=== PATIENT | female | born 1965 | race Caucasian/White ===

== ENCOUNTER 2022-05-06 13:47 | Outpatient (CLI) | payer BC, SELFPAY ==
[2022-05-06 19:54] LABS: Rheumatoid Factor < 8.6 IU/ML (<12)
[2022-05-06 20:01] LABS: Erythrocyte Sedimentation Rate 3 mm/hr (0-20)
== END 2022-05-06 13:48 | disposition home or self-care (01) ==
LOC: ANHGOSHLAB 13:49
PROVIDERS: PCP Family Medicine; Visit Provider Nurse Practitioner Family
DX: M25.50 Pain in unspecified joint (principal); Z82.61 Family history of arthritis
CPT/HCPCS: 36415; 85652; 86038; 86430

== ENCOUNTER → 2023-01-07 09:04 | Outpatient (CLI) | payer OTHER, SELFPAY ==
--- NOTE | ~2023-01-07 | XR_ITS ---
Lumbosacral Spine: AP and lateral views Clinical History: Pain Findings: The normal lordotic curve is maintained. The vertebral bodies and posterior elements are i ntact. The intervertebral disc spaces are preserved. There is mild facet arthropathy at L4-L5 and L5 -S1. The sacroiliac joints are normally outlined. Impression: Mild facet arthropathy at the lower lumbar spine, as detailed above. Reviewed, dictated and finalized at location . Impression: Mild facet arthropathy at the lower lumbar spine, as detailed above.
== END ==
PROVIDERS: PCP Nurse Practitioner Family; Visit Provider Nurse Practitioner Family
DX: M54.50 Low back pain, unspecified (principal)
CPT/HCPCS: 72100

== ENCOUNTER 2023-02-25 04:13 | Day surgery (SDC) | payer OTHER, SELFPAY ==
[2023-02-10 10:42] VITALS: BMI 26.1
--- NOTE | 2023-02-24 14:46 | PM.HPGS ---
History of Present Illness History of Present Illness Consent: Risks, benefits, and alternatives have been discussed and questions answered. Patient agrees to proceed with procedure. Chief complaint: neoplasm screening Narrative: Tanesha Hutton is a 57 year old female Referred for colon cancer screening. she has a history of a polyp. She also has had breast cancer putting her at higher risk. Review of Systems Review of Systems: All systems reviewed & are unremarkable except as noted in HPI and below PMFSH Past Medical History Medical History Abnormal colonoscopy (~2018) Polyp x 1 Adult hypothyroidism Allergic contact dermatitis Benign essential hypertension Graves disease 1994 History of breast cancer 2008 Mixed hyperlipidemia Surgical History Surgical History H/O section 1982, 1983, 1987 H/O lumpectomy 2008 Family History Family History Sibling Family history of rheumatoid arthritis Father Family history of cardiovascular disease Family history of heart disease in male family member before age 55 Grandparent Family history of cardiovascular disease Cerebrovascular accident Family history of type 2 diabetes mellitus Family history of heart disease in male family member before age 55 Mother Family history of chronic obstructive pulmonary disease Family history of dementia Social History Social History Smoking status: Never smoker Alcohol intake: current Drinks per week: 1 Alcohol use details: socially Substance use: never Substance use type: does not use Lack of Transportation: No Lack of Food: Never True Current Housing: I Have Housing Concerned About Future Housing: No Difficulty Paying Gas/Electric Bills: No Difficulty Paying for Meds: No Currently Unemployed: No Education: Associate Degree Difficulty w/ Childcare or Family Care: No Living arrangements: with family Additional living arrangements comments: Occupation/Education: occupation Gender identity (if verbalized by the patient): Female 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 Sexual Orientation (if Verbalized by the Patient): Straight or Heterosexual Spiritual care concerns: No Agree to blood products: Yes Meds Home Medications and Allergies Home Medications Medication Instructions Recorded Confirmed Type triamcinolone acetonide 0.1 % 1 applic topical BID PRN Itching 07/21/20 02/25/23 History topical cream levothyroxine 100 mcg tablet 100 mcg PO DAILY #90 tabs 05/07/22 02/25/23 Rx lisinopril 10 mg tablet 10 mg PO DAILY #90 tabs 09/02/22 02/25/23 Rx lovastatin 10 mg tablet 10 mg PO DAILY #90 tabs 01/04/23 02/25/23 Rx Allergies Allergy/AdvReac Type Severity Reaction Status Date / Time No Known Drug Allergies Allergy unkown Verified 02/25/23 07:40 Exam Const: General: alert Orientation/consciousness: patient oriented x3 Resp: Auscultation: clear to auscultation bilaterally Cardio: Rate: regular rate Rhythm: regular rhythm GI: GI Palp: Yes Soft to palpation and No Tenderness to palpation present (GI) Neuro: General: patient oriented x3 Assessment and Plan Assessment and plan (1) Colon cancer screening: Code(s): Z12.11 - Encounter for screening for malignant neoplasm of colon Status: Acute Assessment and Plan: Colonoscopy with possible biopsy or polypectomy or cautery or injection of substances.
[2023-02-25 07:42] VITALS: BP 138/92; PULSE 77; RESP 18; TEMP 36.5; O2SAT 96; BMI 25.8
[2023-02-25] MEDS: LACTATED RINGERS 1,000 ML 150 ML IV CONT (07:44)
--- NOTE | 2023-02-25 08:27 | WPDANESEPPF ---
Anes - Initial Pre Proc Eval Procedure: Operation Date: 02/25/23 08:45 Proposed Procedures p Screening Colonoscopy - Lobito Pierce MD Date/Time: 02/25/23 08:27 Surgeon: Lobito Pierce MD Pre Op Diagnosis: neoplasm screening Patient Data Age: 57 Gender: F Height: 1.68 m Weight: 72.7 kg Last Vital Signs Temp 97.7 F 02/25/23 07:42 Pulse 77 02/25/23 07:42 Resp 18 02/25/23 07:42 BP 138/92 H 02/25/23 07:42 Pulse Ox 96 02/25/23 07:42 O2 Del Method Room Air 02/25/23 07:42 Allergies Allergy/AdvReac Type Severity Reaction Status Date / Time No Known Drug Allergies Allergy unkown Verified 02/25/23 07:40 Home Medications Medication Instructions Recorded Confirmed Type triamcinolone acetonide 0.1 % 1 applic topical BID PRN Itching 07/21/20 02/25/23 History topical cream levothyroxine 100 mcg tablet 100 mcg PO DAILY #90 tabs 05/07/22 02/25/23 Rx lisinopril 10 mg tablet 10 mg PO DAILY #90 tabs 09/02/22 02/25/23 Rx lovastatin 10 mg tablet 10 mg PO DAILY #90 tabs 01/04/23 02/25/23 Rx Patient hx anesthesia problems: none Family hx anesthesia problems: none Results Review: All pre-operative results and documents have been reviewed as part of the pre-operative evaluation. [facility] Past Medical History Medical History Abnormal colonoscopy (~2018) Polyp x 1 Adult hypothyroidism Allergic contact dermatitis Benign essential hypertension Graves disease 1994 History of breast cancer 2008 Mixed hyperlipidemia Surgical History Surgical History H/O section 1982, 1983, 1987 H/O lumpectomy 2008 Family History Family History Sibling Family history of rheumatoid arthritis Father Family history of cardiovascular disease Family history of heart disease in male family member before age 55 Grandparent Family history of cardiovascular disease Cerebrovascular accident Family history of type 2 diabetes mellitus Family history of heart disease in male family member before age 55 Mother Family history of chronic obstructive pulmonary disease Family history of dementia Social History Social History Smoking status: Never smoker Alcohol intake: current Drinks per week: 1 Alcohol use details: socially Substance use: never Substance use type: does not use Lack of Transportation: No Lack of Food: Never True Current Housing: I Have Housing Concerned About Future Housing: No Difficulty Paying Gas/Electric Bills: No Difficulty Paying for Meds: No Currently Unemployed: No Education: Associate Degree Difficulty w/ Childcare or Family Care: No Living arrangements: with family Additional living arrangements comments: Occupation/Education: occupation Gender identity (if verbalized by the patient): Female 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 Sexual Orientation (if Verbalized by the Patient): Straight or Heterosexual Spiritual care concerns: No Agree to blood products: Yes Anes - Eval Final PreProcedure Day of Procedure 02/25/23 08:27 Patient weight: normal Heart: regular rate and rhythm Lungs: clear to auscultation Airway: Mallampati scale class II Neurological: alert and oriented Last oral intake: >/= 8 hours ASA classification: III Emergent: no Anesthetic plan: proceed Anesthesia type and monitoring: general GIVS and standard monitoring Results Review: All pre-operative results and documents have been reviewed as part of the pre-operative evaluation. Informed Consent: The patient's anesthetic plan and its attendant risks and benefits were discussed with the patient/family/POA. Questions were solicited and answers provided to the satisfaction of the patient/family/POA.
[2023-02-25 08:58] VITALS: BP 113/55; PULSE 77; RESP 15; O2SAT 97
[2023-02-25 09:08] VITALS: BP 118/72; PULSE 80; RESP 18; O2SAT 99
[2023-02-25 09:18] VITALS: BP 121/68; PULSE 63; RESP 16; O2SAT 100
== END 2023-02-25 09:20 | disposition home or self-care (01) ==
PROVIDERS: PCP Nurse Practitioner Family; Visit Provider Internal Medicine Gastroenterology
PROC: 0DJD8ZZ Inspection of Lower Intestinal Tract, Via Natural or Artificial Opening Endoscopic (ICD-10-PCS; CPT 45378; principal; 2023-02-25 08:45)
DX: Z12.11 Encounter for screening for malignant neoplasm of colon (principal); I10 Essential (primary) hypertension; E78.2 Mixed hyperlipidemia; E05.00 Thyrotoxicosis with diffuse goiter without thyrotoxic crisis or storm; Z85.3 Personal history of malignant neoplasm of breast
CPT/HCPCS: 45378; J2704; J7120

== ENCOUNTER → 2023-08-08 09:02 | Outpatient (CLI) | payer OTHER, SELFPAY ==
--- NOTE | ~2023-08-08 | XR_ITS ---
AP view of the pelvis and AP and lateral views of the bilateral hips Clinical history: Pain Findings: No acute fracture or dislocation is seen. Osseous alignment is anatomic. Bilateral hip and SI joint spaces are preserved. Soft tissues are unremarkable. Impression: No significant abnormality is seen. Reviewed, dictated and finalized at [facility]. [employer] Impression: No significant abnormality is seen.
== END ==
PROVIDERS: PCP Nurse Practitioner Family; Visit Provider Nurse Practitioner Family
DX: M25.551 Pain in right hip (principal); M25.552 Pain in left hip
CPT/HCPCS: 73521

== ENCOUNTER 2023-10-24 09:45 | Outpatient (CLI) | payer OTHER, SELFPAY ==
--- NOTE | ~2023-10-24 | DEXA_ITS ---
Bone Density Report Name: MARC GLOVER Age: 57 Sex: Female Ethnicity: White Date of : 1965 Indication: postmenopausal; screening for osteoporosis; parental hip fracture; inflammatory bowel disease; cancer; Referring Provider: PERFECTO MYERS Study: Bone densitometry was performed. Exam Date: October 24, 2023 Accession number: [id number] Bone Density: Region BMD T-score Z-score Classification AP Spine(L1-L4) 0.855 -1.7 -0.3 Osteopenia Femoral Neck (Left) 0.667 -1.6 -0.4 Osteopenia Total Hip (Left) 0.846 -0.8 0.2 Normal Femoral Neck (Right) 0.681 -1.5 -0.2 Osteopenia Total Hip (Right) 0.815 -1.0 -0.1 Normal Total Hip Mean 0.830 -0.9 0.1 Normal World Health Organization criteria for BMD impression classify patients as: Normal (T-score at or above -1.0), Osteopenia (T-score between -1.0 and -2.5), or Osteoporosis (T-score at or below -2.5). 10-year Fracture Risk(1): Major Osteoporotic Fracture 16% Hip Fracture 0.8% Reported Risk Factors: [place] (), Neck BMD=0.667, BMI=28.3, parental fracture (1) FRAX(R) Version 3.08. Fracture probability calculated for an untreated patient. Fracture probability may be lower if the patient has received treatment. Clinical Information Provided by Patient: Parent has had a hip fracture Has used the following medications: Vitamin D Has the following medical conditions: Cancer, Inflammatory bowel diseases, grave's disease, right breast cancer (chemo, lumpectomy, radiation) Patient maximum height was 66 Drinks caffeinated beverages Onset of menses at age 13 Number of children 3 Impression: The patient has low bone mass, based on the Total Spine T-score. The patient has an estimated ten-year risk of hip fracture of 0.8% and an estimated ten-year risk of major fracture of 16%, based on the WHO FRAX algorithm. The patient has risk factors, including: parental hip fracture. Discussion: BONE DENSITY IS LOW AT ONE OR MORE SKELETAL SITES. This patient's lowest T-score is low at one or more skeletal sites. It meets the World Health Organization's (WHO) criteria for ?low bone mass? (T-score between -1.0 and -2.5). The patient's 10-year risk of fracture as calculated by FRAX is less than the threshold where pharmacological therapy is recommended by the National Osteoporosis Foundation (NOF). However, all treatment decisions require clinical judgment and consideration of individual patient factors, including patient preferences, comorbidities, previous drug use, risk factors not captured in the FRAX model (e.g., frailty, falls, vitamin D deficiency, increased bone turnover, interval significant decline in bone density) and possible under or overestimation of fracture risk by FRAX. The patient should follow a healthful lifestyle (good nutrition with sheryl
== END 2023-10-24 09:46 | disposition home or self-care (01) ==
LOC: ANHIMG 09:53
PROVIDERS: PCP Nurse Practitioner Family; Visit Provider Nurse Practitioner Family
DX: Z78.0 Asymptomatic menopausal state (principal); M85.88 Other specified disorders of bone density and structure, other site; M85.852 Other specified disorders of bone density and structure, left thigh; M85.851 Other specified disorders of bone density and structure, right thigh
CPT/HCPCS: 77080

== ENCOUNTER 2025-07-26 15:11 | Emergency (ER) | payer OTHER, SELFPAY ==
--- NOTE | ~2025-07-26 | CT_ITS ---
Tanesha Hutton EXAMINATION: CT abdomen pelvis w con COMPARISON: None HISTORY: LLQ pain, rectal bleeding TECHNIQUE: Axial images were obtained through the abdomen, pelvis post administration of IV contrast. Oral contrast was also administered. Coronal reconstruction images were obtained from the axial views. CT scan performed using dose optimization techniques including the following automated exposure control; adjustment of mA and/or kV; use of iterative reconstruction technique. Automatic exposure control was used to reduce radiation dose. Permanent radiation dose record is archived to PACS. FINDINGS: CT abdomen: LUNG BASES: The lung bases are clear. The visualized portions of the heart and pericardium are unremarkable. LIVER: Subcentimeter probable liver cysts. Minimal hepatic steatosis. Portal vein is patent. There is no intrahepatic biliary duct dilatation. SPLEEN: Unremarkable. KIDNEYS: Right Kidney: Unremarkable. No calculi. No hydronephrosis. Left Kidney: Unremarkable. No calculi. No hydronephrosis ADRENAL GLANDS: Unremarkable. PANCREAS: Unremarkable. GALLBLADDER/BILIARY: Unremarkable. No biliary dilatation. STOMACH AND ESOPHAGUS: Small hiatal hernia. The stomach appears decompressed. BOWEL/MESENTERY: Moderate fecal content. No colitis or diverticulitis. The appendix is normal. Mesentery normal. No thickened or dilated loops of small bowel. ADENOPATHY/RETROPERITONEUM: No lymphadenopathy. AORTA/VASCULATURE: Normal caliber aorta. FREE FLUID OR FREE AIR: There is no free fluid.. CT pelvis: SOLID ORGANS/REPRODUCTIVE: The uterine cavity is abnormally prominent in this postmenopausal patient. BLADDER: Within normal limits. OSSEOUS STRUCTURES: No acute osseous abnormality.No suspicious lesions. OVERLYING SOFT TISSUES: Unremarkable. IMPRESSION: 1. No etiology to explain the patient's left lower quadrant pain. 2. Distended uterine cavity in this postmenopausal patient and endometrial neoplasm is not excluded. Pelvic ultrasound is recommended Reviewed, dictated and finalized at location P. ING MACHINE TENDER IMPRESSION: 1. No etiology to explain the patient's left lower quadrant pain. 2. Distended uterine cavity in this postmenopausal patient and endometrial neop lasm is not excluded. Pelvic ultrasound is recommended
--- OUTSIDE RECORDS SUMMARY | 2025-07-26 15:13 | XMS_ITS | Encounter Summary ---
Author Organization [facility] Address [address] [place] [address] Care Team Providers Care Electric Motor Winders Assembler Name Role Phone Nabil Lund MD Primary Care Provider [phone] Encounter Details Date Type Department Care Team (Late st Contact Info) Description 03/13/2009 Outpatient Historical [facility] Stephanie Johnson MD NO ADDRESS ON FILE Social History Tobacco Use Types Packs/Day Years Used Date Smoking Tobacco: Never Assessed Comments Unknown Sex and Gender Information Value Date Recorded Sex Assigned at Female 07/23/2024 9:12 AM LEAF SIZE PICKER Legal Sex Female 5:41 AM LEAF SIZE PICKER Gender Identity Female 07/23/2024 9:12 AM LEAF SIZE PICKER Sexual Orientation Straight 07/23/2024 9: 12 AM LEAF SIZE PICKER documented as of this encounter Plan of Treatment Not on file documented as of this encounter Procedures Procedure Name Priority Date/Time Associated Diagnosis Comments NM BONE SCAN WHOLE BODY Timed Study 03/13/2009 7:59 AM CDT documented in this encounter Results * NM BONE SCAN WHOLE BODY (03/13/2009 7:59 AM CDT) Anatomical Region Laterality Modality Other 03/13/2009 7:59 AM CDT Narrative 03/13/2009 1:17 PM CDT [address] [address] Admit Date: 03/13/2009 TANESHA DOHERTY Sex: F Admit Prov: STEPHANIE JOHNSON Date: 1965 Primary Care Prov: FAROOQ CAZARES CMRN: [id number] [phone] [facility] Ordering Prov: N/A Accession Number: [id number] Interpretation WHOLE BODY BONE SCAN HISTORY: 43 year old female with recently diagnosed right-sided breast carcinoma. PROCEDURE: Approximately three hours after injection with 23.7 mCi of Tc 99m MDP, the patient was imaged in whole body anterior and posterior planar views. FINDINGS: Correlation is made with CT imaging dated 10/02/2008. Soft tissue uptake is normal, and the kidneys are visualized bilaterally. There is mild degenerative activity along the left cervical spine and at the T4 vertebral body. However, tracer activity throughout the remainder of the axilla and appendicular skeleton is unremarkable. There are no findings on this study to suggest osseous metastatic disease. IMPRESSION: 1. No evidence for osseous metastatic disease. 2. Mild degenerative uptake as above. . Dictated by: GONZÁLEZ EDWARD 03/13/2009 11:59 Electronically signed by: GONZÁLEZ EDWARD 03/13/2009 12:00 Procedure Note González Edward, DO - 03/13/2009 [id number] [place], [place] [address] Admit Date: 03/13/2009 TANESHA DOHERTY Sex: F Admit Prov: STEPHANIE JOHNSON Date: 1965 Primary Care Prov: FAROOQ CAZARES CMRN: [id number] [facility] [phone] [facility] Ordering Prov: N/A Interpretation WHOLE BODY BONE SCAN HISTORY: 43 year old female with recently diagnosed right-sided breastcarcinoma. PROCEDURE: Approximately three hours after injection with 23.7 mCi of Tc 99mMDP, the patient was imaged in whole body anterior and posterior planarviews. FINDINGS: Correlation is made with CT imaging dated 10/02/2008. Soft tissueuptake is normal, and the kidneys are visualized bilaterally. There is mild degenerative activity along the left cervical spine and at the [id number] body. However, tracer activity throughout the remainder of the axillaand appendicular skeleton is unremarkable. There are no findings on thisstudy to suggest osseous metastatic disease. IMPRESSION: 1. No evidence for osseous metastatic disease. 2. Mild degenerative uptake as above. . Dictated by: GONZÁLEZ EDWARD 03/13/2009 11:59 Electronically signed by: GONZÁLEZ EDWARD 03/13/2009 12:00 us Stephanie Johnson MD NM ORDERABLES Final Result documented in this encounter Visit Diagnoses Not on filedocumented in this encounter Care Teams Electric Motor Winders Assembler Relationship Specialty Start Date End Date Nabil Lund MD [address] [place] [address] PCP - General Family Practice 06/21/17 documented as of this encounter
--- OUTSIDE RECORDS SUMMARY | 2025-07-26 15:13 | XMS_ITS | Encounter Summary ---
Author Organization [facility] Address [address] [place] [address] Care Team Providers Care Food And Beverage Coordinator Name Role Phone Nabil Lund MD Primary Care Provider [phone] Encounter Details Date Type Department Care Team (Latest Contact Info) Description 02/28/2009 Outpatient Historical [facility] Nadine Jimenez MD NO ADDRESS ON FILE Malignant Neoplasm of Upper-Outer Quadrant of Female Breast (CMS/HCC) Social History Tobacco Use Types Packs/Day Years Used Date Smoking Tobacco: Never Assessed Comments Unknown Sex and Gender Information Value Date Recorded Sex Assigned at Female 07/23/2024 9:12 AM LEADLIGHTER Legal Sex Female 5:41 AM LEADLIGHTER Gender Identity Female 07/23/2024 9:12 AM LEADLIGHTER Sexual Orientation Straight 07/23/2024 9: 12 AM LEADLIGHTER documented as of this encounter Plan of Treatment Not on file documented as of this encounter Visit Diagnoses Diagnosis Malignant neoplasm of upper-outer quadrant of female breast (CMS/HCC) Malignant neoplasm of upper-outer quadrant of female breast documented in this encounter Care Teams Food And Beverage Coordinator Relationship Specialty Start Date End Date Nabil Lund MD [address] [place] [address] PCP - General Family Practice 06/21/17 documented as of this encounter
--- OUTSIDE RECORDS SUMMARY | 2025-07-26 15:13 | XMS_ITS | Clinical Summary ---
Author Organization [facility] [employer] Address [address] [place] [address] Care Team Providers Care Hotel Clerk Name Role Phone Kelly Kat MD Primary Care Provider [phone] Source Comments [facility] [employer],non-owned Affiliates and Associated Physician Practices is amultiple site organization consisting of ambulatory clinics and hospital sitesin [place], [place], [place] and [place]. This disclosure is being madepursuant to the Care Everywhere program and may not contain all information available regarding this patient. Last updated 18.[facility] [employer] Allergies No known active allergies Medications * Be aware that medications may not be up to date on this document. Alwaysverify current medications with the patient. levothyroxine (SYNTHROID) 100 MCG tablet Take 100 mcg by mouth daily before breakfast Active LOVASTATIN PO Active lisinopril (PRINIVIL; ZESTRIL) 10 MG tablet Take 10 mg by mouth once daily Active Active Problems Problem Noted Date Diagnosed Date Hypothyroidism 07/02/2016 Social History Tobacco Use Types Packs/Day Years Used Date Smoking Tobacco: Never Smokeless Tobacco: Never Comments No Sex and Gender Information Value Date Recorded Sex Assigned at Not on file Legal Sex Female 7:33 AM CDT Gender Identity Not on file Sexual Orientation Not on file Last Filed Vital Signs Vital Sign Reading Time Taken Comments Blood Pressure 120/72 06/21/2019 10:19 AM CDT Pulse 80 06/21/2019 10:19 AM CDT Temperature 36.9 C (98.4 F) 06/21/2019 10:19 AM CDT Respiratory Rate 16 06/21/2019 10:19 AM CDT Oxygen Saturation 98% 06/21/2019 10:19 AM CDT Inhaled Oxygen Concentration - - Weight 80.7 kg (178 lb) 06/21/2019 10:19 AM CDT Height 167.6 cm (5' 6) 06/21/2019 10:19 AM CDT Body Mass Index 28.73 06/21/2019 10:19 AM CDT Plan of Treatment Health Maintenance Due Date Last Done Comments COLOGUARD (AGES 45-75) - COL ON CA SCREENING 1965 COLON MONITORING 1965 COLONOSCOPY - COLON CA SCREENING 1965 CT COLONOGRAPHY - COLON CA SCREENING 1965 Colorectal Cancer Screening 1965 FIT - COLON CA SCREENING 1965 FLEX SIG - COLON CA SCREENING 1965 MAMMOGRAM 1965 HIV SCREENING 11/17/1978 HEPATITIS C SCREENING 11/13/1981 DTAP/TDAP/TD VACCINES (1 - Tdap) 11/17/1982 PAP SMEAR 11/17/1984 Cervical Cancer Screening 11/17/1993 PAP with HPV 11/17/1993 PNEUMOCOCCAL VACCINE 50+ (1 of 1 - PCV) 11/17/2013 ZOSTER VACCINE (1 of 2) 11/17/2013 SCREENING FOR DIABETES 06/21/2019 DEPRESSION SCREENING 08/29/2024 COVID-19 VACCINE (1 - 2024-2 6 season) 2025 INFLUENZA VACCINE (#1) 2025 Respiratory Syncytial Virus (RSV) Vaccine Pt: or over 60 yrs (1 - 1-dose 75+ series) 11/17/2038 HEPATITIS B VACCINE Aged Out No longe r eligible based on patient's age to complete this topic HIB VACCINE Aged Out No longer eligi ble based on patient's age to complete this topic HPV VACCINE Aged Out No longer eligi ble based on patient's age to complete this topic MENINGOCOCCAL (Group B) VACC INE SHARED DECISION-MAKING Aged Out No longer eligibl e based on patient's age to complete this topic MENINGOCOCCAL GROUPS A/C/Y/W VACCINE Aged Out No longer eligible b ased on patient's age to complete this topic Insurance Care Teams Hotel Clerk Relationship Specialty Start Date End Date Kelly Kat MD PCP - General Family Medicine 07/02/16
--- OUTSIDE RECORDS SUMMARY | 2025-07-26 15:13 | XMS_ITS | Encounter Summary ---
Author Organization [facility] Address [address] [place] [address] Care Team Providers Care Veterans' Coordinator Name Role Phone Nabil Lund MD Primary Care Provider [phone]- [phone] Encounter Details Date Type Department Care Team (Latest Contact Info) Description 10/02/2008 Outpatient Historical [facility] Stephanie Johnson MD NO ADDRESS ON FILE Malignant Neoplasm of Breast (Female), Unspecified Site (CMS/HCC) Social History Tobacco Use Types Packs/Day Years Used Date Smoking Tobacco: Never Assessed Comments Unknown Sex and Gender Information Value Date Recorded Sex Assigned at Female 07/23/2024 9:12 AM CREW PERSON Legal Sex Female 5:41 AM CREW PERSON Gender Identity Female 07/23/2024 9:12 AM CREW PERSON Sexual Orientation Straight 07/23/2024 9: 12 AM CREW PERSON documented as of this encounter Plan of Treatment Not on file documented as of this encounter Procedures Procedure Name Priority Date/Time Associated Diagnosis Comments CT CHEST ABDOMEN PELVIS W CONT Routine 10/02/2008 9:41 AM CREW PERSON documented in this encounter Results * CT CHEST ABDOMEN PELVIS W CONT (10/02/2008 9:41 AM CREW PERSON) Anatomical Region Laterality Modality Chest Other 10/02/2008 9:41 AM CREW PERSON Narrative 10/02/2008 11:13 AM CREW PERSON [address] [address] Admit Date: 10/02/2008 TANESHA DOHERTY Sex: F Admit Prov: STEPHANIE JOHNSON Date: 1965 Primary Care Prov: FAROOQ CAZARES CMRN: [id number] Room: [facility] [place] SSN: [id number] IMAGING SERVICES Ordering Prov: N/A Accession Number: [id number] Interpretation EXAM: CT CHEST WITH IV CONTRAST, 10/02/08 Indication: Breast cancer staging. Technique: 5 mm axial images through the chest following intravenous administration of 125 cc of Optiray-320 iodinated contrast. Findings: There is a cluster of 3 fluid collections adjacent to a few surgical clips in the right axilla measuring 4.3 cm, 2 cm and 2.1 cm. I suspect these are hematomas from recent surgery or biopsy. No prior CTs are available for comparison. In the right breast there is a 2.6 x 1.7 cm soft tissue mass. There is no axillary lymphadenopathy. In the preaortic mediastinum there is an elongated 2.0 x 0.6 cm lymph node of questionable significance. There are a couple of 6 mm precarinal lymph nodes. There is no hilar mass or lymphadenopathy. The heart size and mediastinal vessels appear normal. There is no evidence of pulmonary mass or noncalcified pulmonary nodule. Impression: 2.6 cm soft tissue mass in the right breast. Cluster of 3 separate ill-defined fluid collections, probably hematomas, surrounding some surgical clips in the right axilla. EXAM: CT ABDOMEN AND PELVIS WITH IV AND ORAL CONTRAST, 10/02/08 Indication: Breast cancer staging. Technique: 5 mm axial images through the abdomen and pelvis following administration of oral contrast and administration of IV contrast consisting of 125 cc of Optiray-320 iodinated contrast. Findings: Abdomen: The liver, gallbladder, spleen, kidneys, adrenal glands, pancreas and abdominal bowel loops are normal. There is no free air, free fluid, mass or lymphadenopathy. Pelvis: There is no free fluid or focal inflammatory process identified in the pelvis. There is no evidence of mass or lymphadenopathy in the pelvis. Pelvic bowel loops showed no abnormal dilatation or wall thickening. The bladder and genitourinary organs appear normal. Impression: No evidence of metastatic disease to the abdomen or pelvis. . Dictated by: LEELEE HUNT 10/02/2008 10:27 Electronically signed by: LEELEE HUNT 10/02/2008 11:11 Transcribed: 10/02/2008 10:44 LE Procedure Note Leelee Hunt - 10/02/2008 [facility] [address] [place], [place] [address] Admit Date: 10/02/2008 CHASTANESHA Sex: F Admit Prov: STEPHANIE JOHNSON Date: 1965 Primary Care Prov: FAROOQ CAZARES CMRN: [id number] Room: [facility] [place] SSN: [id number] IMAGING SERVICES Ordering Prov: N/A Interpretation EXAM: CT CHEST WITH IV CONTRAST, 10/02/08 Indication: Breast cancer staging. Technique: 5 mm axial images through the chest followingintravenous administration of 125 cc of Optiray-320 iodinated contrast. Findings: There is a cluster of 3 fluid collections adjacent to afew surgical clips in the right axilla measuring 4.3 cm, 2 cm and 2.1 cm.I suspect these are hematomas from recent surgery or biopsy. No priorCTs are available for comparison. In the right breast there is a 2.6 x 1.7 cmsoft tissue mass. There is no axillary lymphadenopathy. In the preaortic mediastinum there is an elongated 2.0 x 0.6 cm lymph node ofquestionable significance. There are a couple of 6 mm precarinal lymph nodes.There is no hilar mass or lymphadenopathy. The heart size and mediastinalvessels appear normal. There is no evidence of pulmonary mass ornoncalcified pulmonary nodule. Impression: 2.6 cm soft tissue mass in the right breast. Cluster of 3 separate ill-defined fluid collections, probablyhematomas, surrounding some surgical clips in the right axilla. EXAM: CT ABDOMEN AND PELVIS WITH IV AND ORAL CONTRAST, 10/02/08 Indication: Breast cancer staging. Technique: 5 mm axial images through the abdomen and pelvisfollowing administration of oral contrast and administration of IV contrast consisting of 125 cc of Optiray-320 iodinated contrast. Findings: Abdomen: The liver, gallbladder, spleen, kidneys, adrenal glands,pancreas and abdominal bowel loops are normal. There is no free air, freefluid, mass or lymphadenopathy. Pelvis: There is no free fluid or focal inflammatory processidentified in the pelvis. There is no evidence of mass or lymphadenopathy in thepelvis. Pelvic bowel loops showed no abnormal dilatation or wall thickening.The bladder and genitourinary organs appear normal. Impression: No evidence of metastatic disease to the abdomen or pelvis. . Dictated by: LEELEE HUNT 10/02/2008 10:27 Electronically signed by: LEELEE HUNT 10/02/2008 11:11 Transcribed: 10/02/2008 10:44 LE us Stephanie Johnson MD CT ORDERABLES Final Result documented in this encounter Visit Diagnoses Diagnosis Malignant neoplasm of breast (female), unspecified site documented in this encounter Care Teams Veterans' Coordinator Relationship Specialty Start Date End Date Nabil Lund MD [address] [place] [address] PCP - General Family Practice 06/21/17 documented as of this encounter
--- OUTSIDE RECORDS SUMMARY | 2025-07-26 15:13 | XMS_ITS | Encounter Summary ---
Author Organization [facility] Address [address] [place] [address] Care Team Providers Care Director Religious Education Name Role Phone Nabil Lund MD Primary Care Provider [phone]- [phone] Encounter Details Date Type Department Care Team (Latest Contact Info) Description 01/27/2009 Outpatient Historical [facility] [place] [address] [place] [address] Nadine Jimenez MD NO ADDRESS ON FILE Malignant Neoplasm of Upper-Outer Quadrant of Female Breast (CMS/HCC) Social History Tobacco Use Types Packs/Day Years Used Date Smoking Tobacco: Never Assessed Comments Unknown Sex and Gender Information Value Date Recorded Sex Assigned at Female 07/23/2024 9:12 AM WHIPPER Legal Sex Female 5:41 AM WHIPPER Gender Identity Female 07/23/2024 9:12 AM WHIPPER Sexual Orientation Straight 07/23/2024 9: 12 AM WHIPPER documented as of this encounter Plan of Treatment Not on file documented as of this encounter Visit Diagnoses Diagnosis Malignant neoplasm of upper-outer quadrant of female breast (CMS/HCC) Malignant neoplasm of upper-outer quadrant of female breast documented in this encounter Care Teams Director Religious Education Relationship Specialty Start Date End Date Nabil Lund MD [address] [place] [address] PCP - General Family Practice 06/21/17 documented as of this encounter
--- OUTSIDE RECORDS SUMMARY | 2025-07-26 15:13 | XMS_ITS | Encounter Summary ---
Author Organization Address [address] [place] [address] Care Team Providers Care Drug Counselor Name Role Phone Nabil Lund MD Primary Care Provider [phone]- [phone] Encounter Details Date Type Department Care Team (Latest Contact Info) Description 12/26/2008 Outpatient Historical [facility] [place] [address] [place] [address] Nadine Jimenez MD NO ADDRESS ON FILE Malignant Neoplasm of Upper-Outer Quadrant of Female Breast (CMS/HCC) Social History Tobacco Use Types Packs/Day Years Used Date Smoking Tobacco: Never Assessed Comments Unknown Sex and Gender Information Value Date Recorded Sex Assigned at Female 07/23/2024 9:12 AM SOCIAL WORKER PSYCHIATRIC Legal Sex Female 5:41 AM SOCIAL WORKER PSYCHIATRIC Gender Identity Female 07/23/2024 9:12 AM SOCIAL WORKER PSYCHIATRIC Sexual Orientation Straight 07/23/2024 9: 12 AM SOCIAL WORKER PSYCHIATRIC documented as of this encounter Plan of Treatment Not on file documented as of this encounter Visit Diagnoses Diagnosis Malignant neoplasm of upper-outer quadrant of female breast (CMS/HCC) Malignant neoplasm of upper-outer quadrant of female breast documented in this encounter Care Teams Drug Counselor Relationship Specialty Start Date End Date Nabil Lund MD [address] [place] [address] PCP - General Family Practice 06/21/17 documented as of this encounter
--- OUTSIDE RECORDS SUMMARY | 2025-07-26 15:13 | XMS_ITS | Encounter Summary ---
Author Organization [facility] Address [address] [place] [address] Care Team Providers Care Database Management Specialist Name Role Phone Nabil Lund MD Primary Care Provider [phone] Encounter Details Date Type Department Care Team (Latest Contact Info) Description 12/12/2008 Outpatient Historical [facility] Cortney Rhodes MD [address] [address] Abnormal Mammogram, Unspecified Social History Tobacco Use Types Packs/Day Years Used Date Smoking Tobacco: Never Assessed Comments Unknown Sex and Gender Information Value Date Recorded Sex Assigned at Female 07/23/2024 9:12 AM [employer] Legal Sex Female 5:41 AM [employer] Gender Identity Female 07/23/2024 9:12 AM [employer] Sexual Orientation Straight 07/23/2024 9: 12 AM [employer] documented as of this encounter Plan of Treatment Not on file documented as of this encounter Procedures Procedure Name Priority Date/Time Associated Diagnosis Comments MAMMO BREAST SPECIMEN RT Routine 12/12/2008 8:33 AM CDT MAMMO SCRN UNI RIGHT W OR WO CAD Routine 12/12/2008 8:33 AM CDT MAMMO CONSULTATION Routine 12/12/2008 8: 32 AM CDT MAMMO NEEDLE LOC EA LESION RT Routine 12/12/2008 8:32 AM CDT documented in this encounter Results * MAMMO BREAST SPECIMEN RT (12/12/2008 8:33 AM CDT) Anatomical Region Laterality Modality Breast Right Other 12/12/2008 8:33 AM CDT Narrative 12/13/2008 7:09 AM CDT [facility] [address], [place] [address] Admit Date: 12/12/2008 TANESHA DOHERTY Sex: F Admit Prov: CORTNEY RHODES Date: 1965 Primary Care Prov: FAROOQ CAZARES CMRN: [id number] Room: [facility] SSN: [id number] IMAGING SERVICES Ordering Prov: CORTNEY RHODES Accession Number: [id number] Interpretation EXAM: RIGHT BREAST WIRE LOCALIZATION USING DIGITAL MAMMOGRAPHIC GUIDANCE AND SURGICAL SPECIMEN RADIOGRAPH. Date: 12/12/2008 History: The patient has a history of right breast cancer. A needle localization has been recommended. Comparison is made with patient's outside films from [facility] dated August 2008. The patient has received neoadjuvant chemotherapy. Procedure and Findings: The procedure was discussed with the patient. After sterile preparation of the skin, the breast was placed in a compression grid, and 1% lidocaine was utilized for local anesthesia. A hook-wire system was advanced to the area of interest in the breast from a lateral approach utilizing digital mammographic guidance. Orthogonal views were obtained to confirm appropriate needle/wire position. 0.2 cc of methylene blue dye was injected into the needle hub prior to the insertion of the wire. The patient tolerated the procedure well and there was no evidence of immediate complication. Images were marked for the surgeon, and the patient was transferred to the operating suite for surgical excision. The surgical specimen was subsequently received from the operating room and digital radiography was performed. The specimen radiograph is suboptimal. A wire is identified within the specimen. A clip is identified, but it cannot be determined if the tissue marker clip is within the tissue or not. IMPRESSION: Technically successful needle localization Dictated by: OLIVIA TREVINO Electronically signed by: OLIVIA TREVINO 12/13/2008 07:07 Transcribed: 12/12/2008 23:55 AMK Procedure Note Olivia Trevino - 12/16/2008 [facility] [address] [place], [place] [address] Admit Date: 12/12/2008 TANESHA DOHERTY Sex: F Admit Prov: CORTNEY RHODES Date: 1965 Primary Care Prov: FAROOQ CAZARES CMRN: [id number] Room: [facility] SSN: [id number] IMAGING SERVICES Ordering Prov: CORTNEY RHODES Interpretation EXAM: RIGHT BREAST WIRE LOCALIZATION USING DIGITAL MAMMOGRAPHICGUIDANCE AND SURGICAL SPECIMEN RADIOGRAPH. Date: 12/12/2008 History: The patient has a history of right breast cancer. A needle localization has been recommended. Comparison is made withpatient's outside films from [facility] dated August 2008. The patient has received neoadjuvant chemotherapy. Procedure and Findings: The procedure was discussed with the patient.After sterile preparation of the skin, the breast was placed in acompression grid, and 1% lidocaine was utilized for local anesthesia. Ahook-wire system was advanced to the area of interest in the breast from alateral approach utilizing digital mammographic guidance. Orthogonal viewswere obtained to confirm appropriate needle/wire position. 0.2 cc ofmethylene blue dye was injected into the needle hub prior to the insertion ofthe wire. The patient tolerated the procedure well and there was noevidence of immediate complication. Images were marked for the surgeon, and the patient was transferredto the operating suite for surgical excision. The surgical specimen was subsequently received from the operatingroom and digital radiography was performed. The specimen radiograph issuboptimal. A wire is identified within the specimen. A clip is identified, but itcannot be determined if the tissue marker clip is within the tissue ornot. IMPRESSION: Technically successful needle localization Dictated by: OLIVIA TREVINO Electronically signed by: OLIVIA TREVINO 12/13/2008 07:07 Transcribed: 12/12/2008 23:55 AMK us Cortney Rhodes MD MAMMO ORDERABLES Final Resul t * MAMMO DIGITAL SCREEN UNI RIGHT (12/12/2008 8:33 AM CDT) Anatomical Region Laterality Modality Breast Right Other 12/12/2008 8:33 AM CDT Narrative 12/13/2008 7:09 AM CDT [facility] [address] [place], [place] [address] Admit Date: 12/12/2008 ARVIND DOHERTYI Raudel Sex: F Admit Prov: CORTNEY RHODES Date: 1965 Primary Care Prov: FAROOQ CAZARES CMRN: [id number] Room: [facility] SSN: [id number] IMAGING SERVICES Ordering Prov: CORTNEY RHODES Accession Number: [id number] Interpretation EXAM: RIGHT BREAST WIRE LOCALIZATION USING DIGITAL MAMMOGRAPHIC GUIDANCE AND SURGICAL SPECIMEN RADIOGRAPH. Date: 12/12/2008 History: The patient has a history of right breast cancer. A needle localization has been recommended. Comparison is made with patient's outside films from [facility] dated August 2008. The patient has received neoadjuvant chemotherapy. Procedure and Findings: The procedure was discussed with the patient. After sterile preparation of the skin, the breast was placed in a compression grid, and 1% lidocaine was utilized for local anesthesia. A hook-wire system was advanced to the area of interest in the breast from a lateral approach utilizing digital mammographic guidance. Orthogonal views were obtained to confirm appropriate needle/wire position. 0.2 cc of methylene blue dye was injected into the needle hub prior to the insertion of the wire. The patient tolerated the procedure well and there was no evidence of immediate complication. Images were marked for the surgeon, and the patient was transferred to the operating suite for surgical excision. The surgical specimen was subsequently received from the operating room and digital radiography was performed. The specimen radiograph is suboptimal. A wire is identified within the specimen. A clip is identified, but it cannot be determined if the tissue marker clip is within the tissue or not. IMPRESSION: Technically successful needle localization Assessment BIRADS: Post procedure mammograms for marker placement Recommendation: No recommendation required Dictated by: OLIVIA TREVINO Electronically signed by: OLIVIA TREVINO 12/13/2008 07:07 Transcribed: 12/12/2008 23:55 AMK Procedure Note Olivia Trevino - 12/16/2008 [facility] [address] [place], [place] [address] Admit Date: 12/12/2008 TANESHA DOHERTY Sex: F Admit Prov: CORTNEY RHODES Date: 1965 Primary Care Prov: FAROOQ CAZARES CMRN: [id number] Room: [facility] SSN: [id number] IMAGING SERVICES Ordering Prov: CORTNEY RHODES Interpretation EXAM: RIGHT BREAST WIRE LOCALIZATION USING DIGITAL MAMMOGRAPHICGUIDANCE AND SURGICAL SPECIMEN RADIOGRAPH. Date: 12/12/2008 History: The patient has a history of right breast cancer. A needle localization has been recommended. Comparison is made withpatient's outside films from [facility] dated August 2008. The patient has received neoadjuvant chemotherapy. Procedure and Findings: The procedure was discussed with the patient.After sterile preparation of the skin, the breast was placed in acompression grid, and 1% lidocaine was utilized for local anesthesia. Ahook-wire system was advanced to the area of interest in the breast from alateral approach utilizing digital mammographic guidance. Orthogonal viewswere obtained to confirm appropriate needle/wire position. 0.2 cc ofmethylene blue dye was injected into the needle hub prior to the insertion ofthe wire. The patient tolerated the procedure well and there was noevidence of immediate complication. Images were marked for the surgeon, and the patient was transferredto the operating suite for surgical excision. The surgical specimen was subsequently received from the operatingroom and digital radiography was performed. The specimen radiograph issuboptimal. A wire is identified within the specimen. A clip is identified, but itcannot be determined if the tissue marker clip is within the tissue ornot. IMPRESSION: Technically successful needle localization Assessment BIRADS: Post procedure mammograms for marker placement Recommendation: No recommendation required Dictated by: OLIVIA TREVINO Electronically signed by: OLIVIA TREVINO 12/13/2008 07:07 Transcribed: 12/12/2008 23:55 AMK us Cortney Rhodes MD MAMMO ORDERABLES Final Resul t * MAMMO CONSULTATION (12/12/2008 8:32 AM CDT) 12/12/2008 8:32 AM CDT Narrative INTERFACE SYSTEM - 12/20/2008 2:39 PM CDT [facility] [address] [place], [place] [address] Admit Date: 12/12/2008 TANESHA DOHERTY Sex: F Admit Prov: CORNTEY RHODES Date: 1965 Primary Care Prov: FAROOQ CAZARES CMRN: [id number] Room: [facility] SSN: [id number] IMAGING SERVICES Ordering Prov: CORTNEY RHODES Accession Number: [id number] Addendum ADDENDUM TO PROCEDURE NOTE OF 12/12/2008 The pathology from the patient's recent right breast needle localization reveals complete pathological response (Peñaloza-Walden, grade 5); tumor bed identified showing fibrosis, chronic inflammation, fibroblastic proliferation, and hemosiderin pigment deposition; biopsy site changes; lobular atrophy. These findings are concordant. The patient will be informed of the above findings by Dr. Rhodes. Dictated by: OLIVIA TREVINO Electronically signed by: OLIVIA TREVINO 12/20/2008 14:37 Transcribed: 12/20/2008 06:59 DK Interpretation EXAM: RIGHT BREAST WIRE LOCALIZATION USING DIGITAL MAMMOGRAPHIC GUIDANCE AND SURGICAL SPECIMEN RADIOGRAPH. Date: 12/12/2008 History: The patient has a history of right breast cancer. A needle localization has been recommended. Comparison is made with patient's outside films from [facility] dated August 2008. The patient has received neoadjuvant chemotherapy. Procedure and Findings: The procedure was discussed with the patient. After sterile preparation of the skin, the breast was placed in a compression grid, and 1% lidocaine was utilized for local anesthesia. A hook-wire system was advanced to the area of interest in the breast from a lateral approach utilizing digital mammographic guidance. Orthogonal views were obtained to confirm appropriate needle/wire position. 0.2 cc of methylene blue dye was injected into the needle hub prior to the insertion of the wire. The patient tolerated the procedure well and there was no evidence of immediate complication. Images were marked for the surgeon, and the patient was transferred to the operating suite for surgical excision. The surgical specimen was subsequently received from the operating room and digital radiography was performed. The specimen radiograph is suboptimal. A wire is identified within the specimen. A clip is identified, but it cannot be determined if the tissue marker clip is within the tissue or not. IMPRESSION: Technically successful needle localization Report revised on 12/20/2008 2:37:40 PM by OLIVIA TREVINO Dictated by: OLIVIA TREVINO Electronically signed by: OLIVIA TREVINO 12/13/2008 07:07 Transcribed: 12/12/2008 23:55 AMK Procedure Note Olivia Trevino - 12/20/2008 [facility] [address], [place] [address] Admit Date: 12/12/2008 TANESHA DOHERTY Sex: F Admit Prov: CORTNEY RHODES Date: 1965 Primary Care Prov: FAROOQ CAZARES CMRN: [id number] Room: [facility] SSN: [id number] IMAGING SERVICES Ordering Prov: CORTNEY RHODES Addendum ADDENDUM TO PROCEDURE NOTE OF 12/12/2008 The pathology from the patient's recent right breast needlelocalization reveals complete pathological response (Peñaloza-Walden, grade 5); tumorbed identified showing fibrosis, chronic inflammation, fibroblastic proliferation, and hemosiderin pigment deposition; biopsy sitechanges; lobular atrophy. These findings are concordant. The patient will be informed of the above findings by Dr. Rhodes. Dictated by: OLIVIA TREVINO Electronically signed by: OLIVIA TREVINO 12/20/2008 14:37 Transcribed: 12/20/2008 06:59 DKT Interpretation EXAM: RIGHT BREAST WIRE LOCALIZATION USING DIGITAL MAMMOGRAPHICGUIDANCE AND SURGICAL SPECIMEN RADIOGRAPH. Date: 12/12/2008 History: The patient has a history of right breast cancer. A needle localization has been recommended. Comparison is made withpatient's outside films from [facility] dated August 2008. The patient has received neoadjuvant chemotherapy. Procedure and Findings: The procedure was discussed with the patient.After sterile preparation of the skin, the breast was placed in acompression grid, and 1% lidocaine was utilized for local anesthesia. Ahook-wire system was advanced to the area of interest in the breast from alateral approach utilizing digital mammographic guidance. Orthogonal viewswere obtained to confirm appropriate needle/wire position. 0.2 cc ofmethylene blue dye was injected into the needle hub prior to the insertion ofthe wire. The patient tolerated the procedure well and there was noevidence of immediate complication. Images were marked for the surgeon, and the patient was transferredto the operating suite for surgical excision. The surgical specimen was subsequently received from the operatingroom and digital radiography was performed. The specimen radiograph issuboptimal. A wire is identified within the specimen. A clip is identified, but itcannot be determined if the tissue marker clip is within the tissue ornot. IMPRESSION: Technically successful needle localization Report revised on 12/20/2008 2:37:40 PM by OLIVIA TREVINO Dictated by: OLIVIA TREVINO Electronically signed by: OLIVIA TREVINO 12/13/2008 07:07 Transcribed: 12/12/2008 23:55 AMK us Cortney Rhodes MD MAMMO ORDERABLES Edited INTERFACE SYSTEM Refer to clinic/hospital department * MAMMO NEEDLE LOC EA LESION RT (12/12/2008 8:32 AM CDT) Anatomical Region Laterality Modality Breast Right Other 12/12/2008 8:32 AM CDT Narrative 12/13/2008 7:09 AM CDT [address] [place], [place] [address] Admit Date: 12/12/2008 TANESHA DOHERTY Sex: F Admit Prov: CORTNEY RHODES Date: 1965 Primary Care Prov: FAROOQ CAZARES CMRN: [id number] Room: [facility] SSN: [id number] IMAGING SERVICES Ordering Prov: CORTNEY RHODES Accession Number: [id number] Interpretation EXAM: RIGHT BREAST WIRE LOCALIZATION USING DIGITAL MAMMOGRAPHIC GUIDANCE AND SURGICAL SPECIMEN RADIOGRAPH. Date: 12/12/2008 History: The patient has a history of right breast cancer. A needle localization has been recommended. Comparison is made with patient's outside films from [facility] dated August 2008. The patient has received neoadjuvant chemotherapy. Procedure and Findings: The procedure was discussed with the patient. After sterile preparation of the skin, the breast was placed in a compression grid, and 1% lidocaine was utilized for local anesthesia. A hook-wire system was advanced to the area of interest in the breast from a lateral approach utilizing digital mammographic guidance. Orthogonal views were obtained to confirm appropriate needle/wire position. 0.2 cc of methylene blue dye was injected into the needle hub prior to the insertion of the wire. The patient tolerated the procedure well and there was no evidence of immediate complication. Images were marked for the surgeon, and the patient was transferred to the operating suite for surgical excision. The surgical specimen was subsequently received from the operating room and digital radiography was performed. The specimen radiograph is suboptimal. A wire is identified within the specimen. A clip is identified, but it cannot be determined if the tissue marker clip is within the tissue or not. IMPRESSION: Technically successful needle localization Assessment BIRADS: Post procedure mammograms for marker placement Recommendation: No recommendation required Dictated by: OLIVIA TREVINO Electronically signed by: OLIVIA TREVINO 12/13/2008 07:07 Transcribed: 12/12/2008 23:55 AMK Procedure Note Olivia Trevino - 12/16/[address] [address] Admit Date: 12/12/2008 TANESHA DOHERTY Sex: F Admit Prov: CORTNEY RHODES Date: 1965 Primary Care Prov: FAROOQ CAZARES CMRN: [id number] Room: [facility] SSN: [id number] IMAGING SERVICES Ordering Prov: CORTNEY RHODES Interpretation EXAM: RIGHT BREAST WIRE LOCALIZATION USING DIGITAL MAMMOGRAPHICGUIDANCE AND SURGICAL SPECIMEN RADIOGRAPH. Date: 12/12/2008 History: The patient has a history of right breast cancer. A needle localization has been recommended. Comparison is made withpatient's outside films from [facility] dated August 2008. The patient has received neoadjuvant chemotherapy. Procedure and Findings: The procedure was discussed with the patient.After sterile preparation of the skin, the breast was placed in acompression grid, and 1% lidocaine was utilized for local anesthesia. Ahook-wire system was advanced to the area of interest in the breast from alateral approach utilizing digital mammographic guidance. Orthogonal viewswere obtained to confirm appropriate needle/wire position. 0.2 cc ofmethylene blue dye was injected into the needle hub prior to the insertion ofthe wire. The patient tolerated the procedure well and there was noevidence of immediate complication. Images were marked for the surgeon, and the patient was transferredto the operating suite for surgical excision. The surgical specimen was subsequently received from the operatingroom and digital radiography was performed. The specimen radiograph issuboptimal. A wire is identified within the specimen. A clip is identified, but itcannot be determined if the tissue marker clip is within the tissue ornot. IMPRESSION: Technically successful needle localization Assessment BIRADS: Post procedure mammograms for marker placement Recommendation: No recommendation required Dictated by: OLIVIA TREVINO Electronically signed by: OLIVIA TREVINO 12/13/2008 07:07 Transcribed: 12/12/2008 23:55 AMK us Cortney Rhodes MD MAMMO ORDERABLES Final Resul t documented in this encounter Visit Diagnoses Diagnosis Abnormal mammogram, unspecified documented in this encounter Care Teams Database Management Specialist Relationship Specialty Start Date End Date Nabil Lund MD [address] [place] [address] PCP - General Family Practice 06/21/17 documented as of this encounter
--- OUTSIDE RECORDS SUMMARY | 2025-07-26 15:13 | XMS_ITS | Clinical Summary ---
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 Active lovastatin (MEVACOR) 10 mg tablet Take 10 mg by mouth daily with supper. Active Active Problems Patient Care Coordination No te Formatting of this note migh t be different from the original. Primary Care: Lacy Bae MD Referring Provider: Lacy Bae MD [address] [place] [address] Other: Problem Noted Date Diagnosed Date Breast cancer screening, high risk patient 06/29 Invasive ductal carcinoma of right breast 2008 Overview (11/01/2013): right breast locally advanced breast cancer, diagnosed in August 2008. Estrogen receptor positive. Had a negative sentinel lymph node biopsy. It was clinically T2 node-negative stage IIa breast cancer. She had neoadjuvant chemotherapy with Dr Mandel. Post chemotherapy pathology on November 2008 showed complete response with negative margins. Tamoxifen X 3.5 years, 1.5 on AI Grave's disease Encounters Date Type Department Care Team Description 07/16/2025 External Device Data [facility] ABSTRACTION Provider, Abstract 06/19/2025 External Device Data [facility] ABSTRACTION Provider, Abstract 06/04/2025 External Device Data [facility] ABSTRACTION Provider, Abstract 05/07/2025 External Device Data [facility] ABSTRACTION Provider, Abstract 04/30/2025 External Device Data [facility] ABSTRACTION Provider, Abstract from Last 3 Months Family History Medical History Relation Name Comments No Known Problems Brother 1 Heart Disease Brother 2 Heart Disease Father Uterine Cancer Maternal Aunt Alzheimer's Disease Mother COPD Mother Healthy Son 1 Healthy Son 2 Breast Cancer Neg Hx Colon Cancer Neg Hx Ovarian Cancer Neg Hx Relation Name Status Comments Brother 1 Alive Brother 2 Father Maternal Aunt Mother Sister Alive arthiritis Son 1 Alive Son 2 Alive Social History Tobacco Use Types Packs/Day Years Used Date Smoking Tobacco: Never Smokeless Tobacco: Never Tobacco Cessation:Counseling Given: Not Answered Alcohol Use Standard Drinks/Week Comments Yes 0 (1 standard drink = 0.6 oz pur e alcohol) socialy Comments No Sex and Gender Information Value Date Recorded Sex Assigned at Female 07/23/2024 9:12 AM SALES OFFICE MANAGER Legal Sex Female 5:41 AM SALES OFFICE MANAGER Gender Identity Female 07/23/2024 9:12 AM SALES OFFICE MANAGER Sexual Orientation Straight 07/23/2024 9: 12 AM SALES OFFICE MANAGER Occupation Industry Job Start Date Job End Date Not on file Not on file Not on file Not on file Last Filed Vital Signs Vital Sign Reading Time Taken Comments Blood Pressure 124/78 09/20/2022 10:21 AM SALES OFFICE MANAGER Pulse 74 07/04/2018 1:03 PM SALES OFFICE MANAGER Temperature 36.9 C (98.5 F) 08/26/2017 10:35 AM SALES OFFICE MANAGER Respiratory Rate 16 12/09/2016 9:53 AM CDT Oxygen Saturation - - Inhaled Oxygen Concentration - - Weight 75.8 kg (167 lb) 09/20/2022 10:21 AM SALES OFFICE MANAGER Height 167.6 cm (5' 6) 09/20/2022 10:21 AM SALES OFFICE MANAGER Body Mass Index 26.95 09/20/2022 10:21 AM SALES OFFICE MANAGER Plan of Treatment Health Maintenance Due Date Last Done Comments FIT-DNA Q 3 years 11/17/2008 Flex Sig/CT Colonography Q 5 years 11/17/2008 ZOSTER VACCINE (1 of 2) 11/17/2013 DTAP/TDAP/TD VACCINES (2 - T d or Tdap) 04/06/2016 04/06/2006 OSTEOPOROSIS SCREENING 07/16/2016 07/16/2014, 2011 FIT/FOBT Q 1 year 09/27/2017 09/27/2016, , 07/16/2014 COLORECTAL SCREENING 02/14/2022 02/14/2017, 08/29/19 10 Colorectal Cancer Screening 02/14/2022 CERVICAL CANCER SCREENING 09/20/2023 PAP SMEAR 09/20/2023 09/20/2022, 05/29, 11/30/2017, Additional history exists INFLUENZA VACCINE (#1) 2025 07/01/2023 BREAST CANCER SCREENING 09/05/2025 09/05/19, 07/30/2023, 07/15/2022, Additional history exists HPV/Cotest (21-29) 09/20/2027 09/20/2022, 1 , 11/30/2017, Additional history exists HPV/Cotest (30-65) 09/20/2027 09/20/2022, 1 , 11/30/2017, Additional history exists RSV VACCINE (60+ or ) (1 - 1-dose 75+ series) 11/17/2038 Procedures Procedure Name Priority Date/Time Associated Diagnosis Comments MAMMO 3D ROSMERY SCREEN BILAT W OR WO CAD Routine 09/05/2024 4:08 PM SALES OFFICE MANAGER Visit for screening mammogram CERV/VAG CYTO AGE BASED SCREEN PAP Routine 09/20/2022 10:47 AM SALES OFFICE MANAGER Well woman exam Screening for cervical cancer Screening for human papillomavirus POC OCCULT BLOOD 1 CARD Routine 09/27/2016 8:32 AM SALES OFFICE MANAGER Screening for malignant neoplasm of the rectum XR DEXA BONE DENSITY AXIAL 1 OR MORE SITES Routine 07/16/2014 12:21 PM SALES OFFICE MANAGER Special screening for osteoporosis from Last 3 Months or Most Recently Relevant to Health Maintenance Results * MAMMO 3D ROSMERY SCREEN BILAT W OR WO CAD (09/05/2024 4:08 PM SALES OFFICE MANAGER) Anatomical Region Laterality Modality Breast Bilateral Mammography 09/05/2024 4:08 PM SALES OFFICE MANAGER Impressions 09/05/2024 4:26 PM SALES OFFICE MANAGER IMPRESSION: No suspicious findings to suggest malignancy in either breast. Annual mammography is recommended. OVERALL FINAL ASSESSMENT: BI-RADS CATEGORY 1 - Negative DICTATION LOCATION: [facility] Narrative 09/05/2024 4:26 PM SALES OFFICE MANAGER BILATERAL SCREENING DIGITAL MAMMOGRAM WITH 3D TOMOSYNTHESIS AND CAD DATE: 09/05/2024 4:08 PM HISTORY: Routine screening. TECHNIQUE: Full-field digital craniocaudal and mediolateral oblique projections of both breasts were obtained. Low-dose full-field digital breast tomosynthesis examination was performed with 2D and 3D acquisitions. Examination is read in conjunction with computer aided detection. COMPARISON: Prior available breast imaging exams. BREAST COMPOSITION: The breasts are almost entirely fatty FINDINGS: No suspicious mass, suspicious microcalcifications, or architectural distortion is identified in either breast. Computer aided detection was used in the interpretation of this examination. us Nabil Lund MD MAMMO ORDERABLES Final Resu lt * CERV/VAG CYTO AGE BASED SCREEN PAP (09/20/2022 10:47 AM SALES OFFICE MANAGER) COMMENT (PAP): [facility] Comment: This order for age-based cervical cancer and STI screening follows ACOG guidelines(PB 168, 140, [id number]). See individual assays for performing site location. CLINICAL INFORMATION [facility] Comment:Routine exam LAST MENSTRUAL PERIOD [facility] Comment:NONE GIVEN PREV PAP: [facility] Comment:06/12/2020 NIL PREV BX: [facility] Comment:NONE GIVEN SOURCE [facility] Comment:Endocervix ADEQUACY: [facility] Comment:SATISFACTORY FOR CLEOPATRA LUATION PAP INTERP [facility] Comment: Negative for intraepithelial lesion or malignancy. Atrophic pattern; predominantly parabasal cells COMMENT (PAP TEST) [facility] Comment: This Pap test has been evaluated with computer assisted technology. COLD HEADER OPERATOR: [facility] Comment: KMS, CT(ASCP) CT Screening location: [place] [address] [place] [address] [address] [facility] Comment: EXPLANATORY NOTE: The Pap is a screening test for cervical cancer. It is not a diagnostic test and is subject to false negative and false positive results. It is most reliable when a satisfactory sample, regularly obtained, is submitted with relevant clinical findings and history, and when the Pap result is evaluated along with historic and current clinical information. HPV E6/E7 Not Detected Not Detected [employer] Comment: Methodology: Production Control Specialist-Mediated Amplification This assay detects E6/E7 viral messenger RNA (mRNA) from 14 high-risk HPV types (16,18,31,33,35,39,45,51,52,56,58,59,66,68). Cervical sources are required for HPV testing. If a vaginal source from a patient who has had a total hysterectomy with removal of cervix was submitted, please contact the testing laboratory for alternative testing options. For additional information, please refer to http://education.Patient Conversation Media/faq/JHK262b6 (This link if provided for information/ educational purposes only.) Test Performed at: [facility] [id number] [place] [address] Alan Montalvo D.O., MPH Genital SWAB OF ENDOCERVIX / Unknown 09/20/2022 10:47 AM SALES OFFICE MANAGER 09/20/2022 11:44 PM SALES OFFICE MANAGER Lisa Koenig MD PATHOLOGY/CYTOLOGY ORDERABLES Final Result [facility] [phone] [facility] [address] [place] [address] * POC OCCULT BLOOD 1 CARD (09/27/2016 8:32 AM SALES OFFICE MANAGER) OCCULT BLOOD #1 Negative Negative [facility] Stool STOOL SPECIMEN / Unknown 09/27/2016 8:32 AM SALES OFFICE MANAGER Geraldine Pollack MD POINT OF CARE TESTING Final Result [facility] * (ABNORMAL) XR DEXA BONE DENSITY AXIAL 1 OR MORE SITES (07/16/2014 12:21 PM SALES OFFICE MANAGER) T-SCORE FEMUR -1.2(A) -1.0 - 1.0 [facility] T-SCORE FEMUR (LEFT) -1.0 - 1.0 [facility] T-SCORE FEMUR (RIGHT) -1.0 - 1.0 [facility] T-SCORE FEMUR NECK -1.0 - 1.0 [facility] T-SCORE FEMORAL NECK (LEFT) -1.0 - 1.0 [facility] T-SCORE FEMORAL NECK (RIGHT) -1.0 - 1.0 [facility] T-SCORE HEEL -1.0 - 1.0 [facility] T-SCORE HEEL (LEFT) -1.0 - 1.0 [facility] T-SCORE HEEL (RIGHT) -1.0 - 1.0 [facility] T-SCORE HIP -1.0 - 1.0 [facility] T-SCORE HIP (LEFT) -1.0 - 1.0 [facility] T-SCORE HIP (RIGHT) -1.0 - 1.0 [facility] T-SCORE WRIST -1.0 - 1.0 [facility] T-SCORE WRIST (LEFT) -1.0 - 1.0 [facility] T-SCORE WRIST (RIGHT) -1.0 - 1.0 [facility] T-SCORE SPINE -0.8 -1.0 - 1.0 [facility] Anatomical Region Laterality Modality Other 07/16/2014 12:2 1 PM SALES OFFICE MANAGER Geraldine Pollack MD DIAGNOSTIC IMAGING ORDERABLE S Final Result from Last 3 Months or Most Recently Relevant to Health Maintenance Insurance [employer] [id number] Care Teams Petroleum Plant Operator Relationship Specialty Start Date End Date Nabil Lund MD [address] [place] [address] PCP - General Family Practice 06/21/17
[2025-07-26 15:18] VITALS: BP 166/85; PULSE 71; RESP 14; TEMP 36.5; O2SAT 100
[2025-07-26 15:40] VITALS: BP 134/73; PULSE 77; RESP 17; O2SAT 98
[2025-07-26 15:52] LABS: Hematocrit 43.8 % (37.0-47.0); Hemoglobin 14.9 g/dL (12.0-15.0); Immature Granulocyte Percent A 0.3 % (0-0.5); Lymphocytes Absolute Auto 1.72 K/mm3 (0.9-3.2); Mean Corpuscular HGB Conc 34.0 g/dl (32-36); Mean Corpuscular Hemoglobin 31.0 pg (26-34); Mean Corpuscular Volume 91.1 fl (80-100); Nucleated Red Blood Cells Absolute Auto 0.000 K/mm3 (0.0-0.012); Nucleated Red Blood Cells Perc 0.0 % (0.0-0.2); Platelet Count Result 234 k/mm3 (150-375); Red Blood Count 4.81 M/mm3 (4.2-5.4); White Blood Count 7.3 K/mm3 (4.5-10.0)
[2025-07-26 16:05] LABS: Alanine Aminotransferase 19 U/L (6-35); Albumin Level 4.5 g/dL (3.5-5.1); Alkaline Phosphatase 74 U/L (38-126); Anion Gap 3 mmol/L (4-12); Aspartate Amino Transferase 25 U/L (14-36); Bilirubin,Total 0.5 mg/dL (0.2-1.3); Blood Urea Nitrogen 14 mg/dL (7-17); Calcium 9.8 mg/dL (8.4-10.2); Carbon Dioxide 31 mmol/L (22-30); Chloride 105 mmol/L (98-107); Estimated CRCL calculation 69 ml/min; Estimated Glomerular Filt Rate > 60; Glucose 104 mg/dL (65-110); Lipase 43 U/L (23-300); Magnesium 2.1 mg/dL (1.6-2.3); Potassium 3.9 mmol/L (3.4-5.0); Sodium 139 mmol/L (137-145); Total Protein 7.4 g/dL (6.3-8.2)
[2025-07-26 17:23] LABS: Add Urine Microscopic? NO; Appearance Urine Clear (Clear); Glucose Urine UA Negative (Negative); Leukocyte Esterase Ur Negative LEU/UL (Negative); Nitrate Urine Negative (Negative); Specific Grav Ur 1.022 (1.001-1.035)
[2025-07-26 17:29] VITALS: BP 134/66; PULSE 69; RESP 17; O2SAT 99
--- NOTE | 2025-07-26 18:42 | ED.GIBLEED ---
HPI - GI Bleed General Chief complaint: GI Bleed Stated complaint: abd pain, gi bleed Time Seen by Provider: 07/26/25 15:23 History of Present Illness HPI Narrative: Patient presents here with lower abdominal discomfort, nausea, vomiting, diarrhea, with blood in her stools that she noticed. Ongoing for last few days Related Data Allergies Allergy/AdvReac Type Severity Reaction Status Date / Time No Known Drug Allergies Allergy unkown Verified 07/26/25 15:20 Review of Systems Review of Systems: All systems reviewed & are unremarkable except as noted in HPI and below PMFSH Past Medical History Medical History Prediabetes (~06/08/24) Osteopenia of both hips Hx of colonic polyps (~2017) Cyst of skin right dorsal shoulder Graves disease 1994 Adult hypothyroidism Benign essential hypertension History of breast cancer 2008 Mixed hyperlipidemia Surgical History Surgical History H/O section 1982, 1983, 1987 H/O lumpectomy 2008 Family History Family History Sibling Family history of rheumatoid arthritis Father Family history of cardiovascular disease Family history of heart disease in male family member before age 55 Grandparent Family history of cardiovascular disease Cerebrovascular accident Family history of type 2 diabetes mellitus Family history of heart disease in male family member before age 55 Mother Family history of chronic obstructive pulmonary disease Family history of dementia Social History Social History Social History: Tanesha is , she works for a [employer] and will be retiring in December/2024. Smoking status: Never smoker Alcohol intake: current Drinks per week: 1 Alcohol use details: socially Substance use: never Substance use type: does not use Lack of Transportation: No Lack of Food: Never True Current Housing: I Have Housing Concerned About Future Housing: No Difficulty Paying Gas/Electric Bills: No Difficulty Paying for Meds: No Currently Unemployed: No Education: Associate Degree Difficulty w/ Childcare or Family Care: No Living arrangements: with family Additional living arrangements comments: Occupation/Education: occupation Gender identity (if verbalized by the patient): Female 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 EYES: EOMI, conjunctiva normal ENT: Hearing grossly intact LUNGS: Nonlabored breathing. HEART: [Regular rate and rhythm] ABD: [Soft], very mildly tender to palpation left lower quadrant RECTAL: Some blood in stool EXT: Normal range of motion SKIN: [No rashes or lesions.] NEURO: [Alert and oriented x 3. No gross focal sensory or strength deficits.] PSYCH: Normal affect Course Vital Signs Vital signs: Vital Signs Temperature 97.7 F 07/26/25 15:18 Pulse Rate 71 07/26/25 15:18 Respiratory Rate 14 07/26/25 15:18 Blood Pressure 166/85 H 07/26/25 15:18 Pulse Oximetry 100 07/26/25 15:18 Oxygen Delivery Room Air 07/26/25 15:18 Temperature 97.7 F 07/26/25 15:18 Pulse Rate 69 07/26/25 17:29 Respiratory Rate 17 07/26/25 17:29 Blood Pressure 134/66 07/26/25 17:29 Pulse Oximetry 99 07/26/25 17:29 Oxygen Delivery Room Air 07/26/25 15:18 MDM - GI Bleed MDM Narrative Medical decision making narrative: Electronic medical record was reviewed. Patient presented to the ED with complaint of [abdominal pain and diarrhea, now with blood in her stools]. Vitals [were within acceptable limits]. Physical exam revealed soft abdomen with some slight tenderness to the left lower quadrant, on rectal exam there is some blood in the stools and Hemoccult-positive, otherwise she is well-appearing. Based on the patient's history and physical exam, my differential includes but is not limited to [gastritis, gastroenteritis, cholecystitis, diverticulitis, colitis]. [IV access was established by nursing staff]. CBC, BMP, lipase, LFTs, bilirubin and alk phos were obtained. Labs were pertinent for labs within acceptable limits. [Decision was made to obtain a CT-abdomen to evaluate for acute abdominal process. CT-abdomen per radiology interpretation is unremarkable for acute intra-abdominal process, the radiologist was concerned for possible abnormal uterus.] On reevaluation, the patient states that they are feeling much better. There were no witnessed episodes of vomiting in the emergency department. They are not complaining of any new abdominal pain. Repeat examination did not show any significant guarding or rebound. No new tenderness. At this time I do not feel there is any further emergent treatment to be provided. The patient was given strict return precautions, if they are to develop any worsening abdominal pain, vomiting, or increasing blood in stools, they are to return to the emergency department immediately. Patient verbally acknowledges understanding these directions. The patient was informed of the above diagnostic test findings with need to follow-up with OBGYN. They will be discharged home [with prescriptions for Bentyl and Zofran]. They were advised to follow-up with PCP and obgyn nurse in 2 days. The patient feels that this is appropriate medical decision making and verbalizes an understanding of the discharge instructions. Lab Data 07/26/25 15:44 07/26/25 15:44 Labs: Lab Results 07/26/25 07/26/25 Range/Units 15:44 17:16 WBC 7.3 (4.5-10.0) K/mm3 RBC 4.81 (4.2-5.4) M/mm3 Hgb 14.9 (12.0-15.0) g/dL Hct 43.8 (37.0-47.0) % MCV 91.1 (80-100) fl MCH 31.0 (26-34) pg MCHC 34.0 (32-36) g/dl RDW 12.6 (11.5-14.5) % Plt Count 234 (150-375) k/mm3 MPV 8.9 (7.4-10.4) fl Immature Gran % (Auto) 0.3 (0-0.5) % Neut % (Auto) 61.7 (45.5-73.1) % Lymph % (Auto) 23.4 (18.3-44.2) % Bowie % (Auto) 10.6 H (2.6-8.5) % Eos % (Auto) 3.3 (0-4.4) % Baso % (Auto) 0.7 (0.2-1.2) % Lymph # (Auto) 1.72 (0.9-3.2) K/mm3 Bowie # (Auto) 0.8 H (0.1-0.6) K/mm3 Eos # (Auto) 0.2 (0-0.3) K/mm3 Baso # (Auto) 0.1 (0.0-0.1) K/mm3 Abs Immat Gran (auto) 0.02 (0.00-0.031) K/mm3 Absolute Neuts (auto) 4.5 (1.3-6.7) K/mm3 Absolute Nucleated RBC 0.000 (0.0-0.012) K/mm3 Nucleated RBC % 0.0 (0.0-0.2) % Sodium 139 (137-145) mmol/L Potassium 3.9 (3.4-5.0) mmol/L Chloride 105 (98-107) mmol/L Carbon Dioxide 31 H (22-30) mmol/L Anion Gap 3 L (4-12) mmol/L BUN 14 (7-17) mg/dL Creatinine 0.69 L (0.7-1.0) mg/dL Estim Creat Clear Calc 69 ml/min Estimated GFR > 60 (59 - ) Glucose 104 (65-110) mg/dL Lactic Acid 1.0 (0.7-2.0) mmol/L Calcium 9.8 (8.4-10.2) mg/dL Magnesium 2.1 (1.6-2.3) mg/dL Total Bilirubin 0.5 (0.2-1.3) mg/dL AST 25 (14-36) U/L ALT 19 (6-35) U/L Alkaline Phosphatase 74 (38-126) U/L Total Protein 7.4 (6.3-8.2) g/dL Albumin 4.5 (3.5-5.1) g/dL Lipase 43 (23-300) U/L Urine Color Yellow (Yellow) Urine Appearance Clear (Clear) Urine pH 7.0 (5.0-9.0) Ur Specific Fillmore 1.022 (1.001-1.035) Urine Protein Negative (Negative) mg/dL Urine Glucose (UA) Negative (Negative) mg/dL Urine Ketones Negative (Negative) mg/dL Ur Blood (Man) Negative (Negative) Urine Nitrate Negative (Negative) Urine Bilirubin Negative (Negative) Urine Urobilinogen 0.2 (<2.0) mg/dL Leukocyte Esterase Rfl Negative (Negative) PARKER/UL Discharge Plan Discharge Clinical Impression: Rectal bleeding Patient Disposition: Home Condition: Stable Instructions: Rectal Bleeding (ED) Additional Instructions: Your CT scan today showed: Distended uterine cavity in this postmenopausal patient and endometrial neoplasm is not excluded. Pelvic ultrasound is recommended Please follow up with your CHEESE SUPERVISOR for further workup. Make sure to keep hydrated; if you start having increased bloody stools or anything else concerning, please come back to the ER. Patient Language: Khmer Prescriptions: New dicyclomine 20 mg tablet 20 mg PO TID PRN (Reason: abdominal pain) Qty: 30 0RF ondansetron 4 mg tablet,disintegrating 4 mg PO Q8H PRN (Reason: nausea and vomiting) Qty: 10 0RF No Action lisinopril 10 mg tablet 10 mg PO DAILY Qty: 90 1RF lovastatin 10 mg tablet 10 mg PO DAILY Qty: 90 1RF cholecalciferol (vitamin D3) 50 mcg (2,000 unit) tablet 50 mcg PO DAILY Qty: 90 2RF levothyroxine [Levoxyl] 100 mcg tablet 100 mcg PO DAILY Qty: 90 0RF Follow-up/Referrals: Shaniqua Jimenez APRN [Primary Care Provider, Family Practice] Pepe Peñaloza MD [Physician, ENROLLMENT CLERK] - 2 Days
== END 2025-07-26 18:30 | disposition home or self-care (01) ==
PROVIDERS: Emergency Provider Emergency Medicine; PCP Nurse Practitioner Family
DX: K62.5 Hemorrhage of anus and rectum (principal); I10 Essential (primary) hypertension; E78.2 Mixed hyperlipidemia; E03.9 Hypothyroidism, unspecified; M85.88 Other specified disorders of bone density and structure, other site; Z85.3 Personal history of malignant neoplasm of breast; Z79.899 Other long term (current) drug therapy
CPT/HCPCS: 36415; 74177; 80053; 81003; 83605; 83690; 83735; 85025; 99284; Q9967